=== PATIENT | male | born 1995 | race Caucasian/White ===

== ENCOUNTER 2018-04-21 17:18 | Emergency (ER) | payer BC, OTHER ==
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
[2018-04-21 17:28] VITALS: BP 145/88
[2018-04-21] MEDS ORDERED: NAPR220C12 PO (18:06)
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
== END 2018-04-21 18:23 | disposition home or self-care (01) ==
LOC: ER 17:26
DX: M54.5 Low back pain (principal); V13.4XXA Pedal cycle driver injured in collision with car, pick-up truck or van in traffic accident, initial encounter; Y93.55 Activity, bike riding
CPT/HCPCS: 72072; 72100; 99283